=== PATIENT | female | born 1990 | race Hispanic/Latino ===

== ENCOUNTER 2017-07-21 12:39 | Emergency (ER) | payer OTHER ==
[2017-07-21 12:47] VITALS: BP 100/53; PULSE 74; RESP 16; TEMP 97; O2SAT 99
--- NOTE | 2017-07-21 12:58 | ED PDOC ---
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 injury to left 5th digit puncture wound no swelling no pain. no active bleeding. Past Medical History Reviewed: Historical Data, Nursing Documentation, Vital Signs Vital Signs: Last Vital Signs Temp 97.0 F L 07/21/17 12:45 Pulse 74 07/21/17 12:45 Resp 16 07/21/17 12:45 BP 100/53 L 07/21/17 12:45 Pulse Ox 99 07/21/17 13:01 - Medical History PMH: No Chronic Diseases - Family History Family History: States: No Known Family Hx - Allergies Allergies/Adverse Reactions: Allergies Allergy/AdvReac Type Severity Reaction Status Date / Time No Known Allergies Allergy Verified 07/21/17 12:47 Review of Systems ROS Statement: Except As Marked, All Systems Reviewed And Found Negative Musculoskeletal: Positive for: Hand Pain Physical Exam - Reviewed Nursing Documentation Reviewed: Yes Vital Signs Reviewed: Yes - Physical Exam Appears: Positive for: Well, Non-toxic, No Acute Distress Head Exam: Positive for: NORMOCEPHALIC Skin: Positive for: Normal Color, Warm, DRY Eye Exam: Positive for: Normal appearance, EOMI, PERRL Extremity: Positive for: Other (hand pain: left 5th digit no swelling no bleeding no ertyhema. ) Neurologic/Psych: Positive for: Alert, Oriented - ECG O2 Sat by Pulse Oximetry: 99 - Progress ED Course And Treament: standard protocol for employee needle stick followed. wound care provided. Medical Decision Making Medical Decision Making: pt will continue to f/u with [facility]. Disposition - Clinical Impression Clinical Impression: Needle stick injury - Patient ED Disposition Is Patient to be Admitted: No Counseled Patient/Family Regarding: Need For Followup - Disposition Disposition: Routine/Home Disposition Time: 13:25 Condition: STABLE Instructions: Needle Stick Injuries (ED) Forms: [facility] [employer] ([place]ian)
== END 2017-07-21 13:38 | disposition home or self-care (01) ==
LOC: H.ER 12:39
DX: S61.431A Puncture wound without foreign body of right hand, initial encounter (principal); W46.0XXA Contact with hypodermic needle, initial encounter; Y99.0 Civilian activity done for income or pay